=== PATIENT | male | born 1965 | race Caucasian/White ===

== ENCOUNTER 2018-04-09 06:35 | Day surgery (SDC) | payer BC ==
[2018-04-09] MEDS ORDERED: Lactated Ringers 1,000 ML IV SCH (06:45)
[2018-04-09] MEDS ORDERED: Simethicone Drops 40 MG/0.6 ML 30 ML Bottle ONE (08:05)
--- NOTE | 2018-04-09 08:22 | PCM.OPNOTE ---
- General Post-Op/Procedure Note Date of Surgery/Procedure: 04/09/18 Operative Procedure(s): c scope Findings: normal exam Pre Op Diagnosis: colon cancer screening Post-Op Diagnosis: Same Anesthesia Technique: MAC Primary Surgeon: Delmar Garcias Anesthesia Provider: [place] Pathology: none Complications: None Condition: Good Free Text/Narrative:: see dictation.
[2018-04-09] MEDS ORDERED: Propofol 200 MG/20 ML SDV IV ONE (08:26)
--- NOTE | 2018-04-09 10:04 | OR ---
DATE OF OPERATION: 04/09/2018 SURGEON: Delmar Garcias MD PROCEDURE PERFORMED: Colonoscopy. PREOPERATIVE DIAGNOSIS: Need for screening C-scope. POSTOPERATIVE DIAGNOSIS: Normal exam. INDICATIONS FOR PROCEDURE: This is a 53-year-old white male who presents for his initial screening colonoscopy. He was offered and accepted same. DESCRIPTION OF OPERATION: After an excellent IV sedation was administered, digital rectal exam was performed. No marked abnormality was noted. The flexible colonoscope was inserted and advanced very easily to the cecum. The prep was excellent. The following findings were noted. Ascending colon, unremarkable. Transverse colon, unremarkable. Descending colon, unremarkable. Sigmoid and rectum, unremarkable. Colon was deflated as the scope was removed. The patient tolerated the procedure well, was taken to recovery in good condition. RECOMMENDATIONS: Repeat colonoscopy in 10 years. /[id number] /MODL
== END 2018-04-09 09:12 | disposition home or self-care (01) ==
LOC: FB.SDS 06:35
PROVIDERS: ATTEND Surgery
DX: Z12.11 Encounter for screening for malignant neoplasm of colon (principal); I10 Essential (primary) hypertension; E66.9 Obesity, unspecified; Z68.36 Body mass index [BMI] 36.0-36.9, adult; E78.5 Hyperlipidemia, unspecified; G47.33 Obstructive sleep apnea (adult) (pediatric); Z99.89 Dependence on other enabling machines and devices; Z79.899 Other long term (current) drug therapy
CPT/HCPCS: 45378; A9270; J2704; J7120